=== PATIENT | female | born 1990 | race Caucasian/White ===

== ENCOUNTER 2020-01-11 15:27 | Emergency (ER) | payer OTHER, SELFPAY ==
[2020-01-11] MEDS ORDERED: ONDANSETRON 4 MG/2 ML VIAL ONE (17:44)
[2020-01-11] MEDS ORDERED: FENTANYL CITR 100 MCG/2 ML ONE (17:44)
[2020-01-11 18:05] LABS: Absolute Lymphocytes (CBC) 3.3 K/uL (0.7-4.9); Hematocrit 43.4 % (36.0-45.0); MPV 8.5 fL (7.6-11.3); RBC Red Blood Cell Count 4.56 M/uL (3.86-4.86)
[2020-01-11 18:09] LABS: Urine Blood NEGATIVE (NEG); Urine Glucose NEGATIVE (NEG); Urine Protein NEGATIVE (NEG)
[2020-01-11 18:14] LABS: Urine Amorphous Sediment 2+ /HPF (NONE SEEN); Urine Bacteria LOADED /HPF (<20); Urine Culture Reflex Order NOT NEEDED; Urine RBC <5 /HPF (NONE SEEN)
[2020-01-11 18:20] LABS: Albumin 3.4 g/dL (3.4-5.0); Bilirubin Direct 0.3 mg/dL (0-0.2); Bilirubin Total 1.1 mg/dL (0.2-1.0); Potassium 3.9 mmol/L (3.5-5.1); Protein, Total 8.4 g/dL (6.4-8.2)
--- NOTE | 2020-01-11 19:15 | RAD REPORT ---
EXAM DESCRIPTION: CT - Abdomen Pelvis W Contrast - 01/11/2020 6:41 pm CLINICAL HISTORY: Abdominal pain COMPARISON: 2014 TECHNIQUE: Computed axial tomography of the abdomen pelvis was obtained. 100 cc Isovue-300 was admin istered intravenously. Oral contrast was not requested which limits evaluation of bowel. All CT scans are performed using dose optimization technique as appropriate and may include automated exposure control or mA/KV adjustment according to patient size. FINDINGS: Fatty liver The spleen, adrenals and kidneys unremarkable Cholecystectomy Pancreas is normal size and density. Moderate stranding is present within the fat between the pancreatic tail and descending colon. There is no evidence of diverticulitis. Normal appendix. Small umbilical hernia IMPRESSION: Moderate stranding within the fat between the pancreatic tail and descending colon. This indicates inflammation. It probably is related to pancreatitis. Colonic information is considered so mewhat less likely
[2020-01-11] MEDS ORDERED: NA CHLORIDE 0.9% 1,000 ML ONE (19:36)
--- NOTE | 2020-01-11 20:09 | EDPHYS ---
Physician Documentation [facility] Name: Felicitas Narayan Age: 29 yrs Sex: Female : 1990 Arrival Date: 01/11/2020 Time: 15:32 Bed 5 Private MD: ED Physician Shaka Gary HPI: 01/10 17:27 This 29 yrs old Female presents to ER via Ambulatory with complaints of jmm Abdominal Pain. 17:27 The patient presents with abdominal pain. Onset: The symptoms/episode began/occurred jmm gradually. The symptoms do not radiate. Associated signs and symptoms: Pertinent positives: anorexia, Pertinent negatives: diarrhea, dysuria, fever, palpitations, shortness of breath, vaginal discharge, vomiting, vomiting blood. This is a 29 year old female with a history of anxiety, cva, depression, hypoglycemia, lupus, epilepsy that presents to the ED with complaints of generalized abdominal pain over the past 3 days worsening today. . Historical: - Allergies: 15:45 cranberries; ss 15:45 Morphine; ss 15:45 ORANGES; ss - PMHx: 15:45 Anxiety; CVA; x6; Depression; HYPOGLYCEMIA; Lupus; none since 2011; Seizures; Ulcers; ss Hepatitis; - PSHx: 15:45 Hysterectomy; Cholecystectomy; ss - Immunization history:: Adult Immunizations up to date. - Social history:: Smoking status: Patient reports the use of cigarette tobacco products, 1 pp week. ROS: 17:27 Constitutional: Negative for fever, chills, and weight loss, Cardiovascular: Negative jmm for chest pain, palpitations, and edema, Respiratory: Negative for shortness of breath, cough, wheezing, and pleuritic chest pain. 17:27 Abdomen/GI: Positive for abdominal pain. 17:27 All other systems are negative. Exam: 17:27 Constitutional: This is a well developed, well nourished patient who is awake, alert, jmm and in no acute distress. Head/Face: atraumatic. Eyes: EOMI, no conjunctival erythema appreciated ENT: Moist Mucus Membranes Neck: Trachea midline, Supple Chest/axilla: Normal chest wall appearance and motion. Cardiovascular: Regular rate and rhythm. No edema appreciated Respiratory: Normal respirations, no respiratory distress appreciated 17:27 Back: Normal ROM Skin: General appearance color normal MS/ Extremity: Moves all extremities, no obvious deformities appreciated, no edema noted to the lower extremities Neuro: Awake and alert, normal gait Psych: Behavior is normal, Mood is normal, Patient is cooperative and pleasant 17:27 Abdomen/GI: Inspection: obese Palpation: soft, moderate abdominal tenderness, in the right lower quadrant. Vital Signs: 15:42 BP 146 / 106; Pulse 105; Resp 16; Temp 98.5(TE); Pulse Ox 99% on R/A; Weight 93.44 kg; ss Height 5 ft. 0 in. (152.40 cm); Pain 6/10; 20:15 BP 138 / 78; Pulse 80; Resp 18; Pulse Ox 98% ; ea 15:42 Body Mass Index 40.23 (93.44 kg, 152.40 cm) ss MDM: 17:17 Patient medically screened. [facility] 20:05 Data reviewed: vital signs, nurses notes. Counseling: I had a detailed discussion with seymour the patient and/or guardian regarding: the historical points, exam findings, and any diagnostic results supporting the discharge/admit diagnosis, lab results, radiology results, the need for outpatient follow up, to return to the emergency department if symptoms worsen or persist or if there are any questions or concerns that arise at home. ED course: Patient is alert and non toxic in appearance in the ED. Patient is advised to follow up with pcp and otherwise advised to follow up with GI for further evaluation. Patient understood and agrees with the plan of care. . 01/10 15:47 Order name: Urine Culture [facility] 01/10 15:47 Order name: Urine Microscopic Only; Complete Time: 18:19 [facility] 01/10 17:27 Order name: Basic Metabolic Panel; Complete Time: 18:25 [facility] 01/10 17:27 Order name: CBC with Diff; Complete Time: 18:09 [facility] 01/10 17:27 Order name: Hepatic Function; Complete Time: 18:25 [facility] 01/10 17:27 Order name: Lipase; Complete Time: 18:25 [facility] 01/10 15:47 Order name: Urine Test (obtain specimen); Complete Time: 18:23 [facility] 01/10 15:47 Order name: Urine Dipstick-Ancillary (obtain specimen); Complete Time: 18:23 [facility] 01/10 17:27 Order name: IV Saline Lock; Complete Time: 18:23 [facility] 01/10 17:27 Order name: CT Abd/Pelvis - IV Contrast Only; Complete Time: 19:19 [facility] 01/10 18:05 Order name: Urine Dipstick--Ancillary (enter results); Complete Time: 18:14 eb 01/10 17:27 Order name: Labs collected and sent; Complete Time: 18:02 [facility] Administered Medications: 18:23 Drug: fentaNYL (PF) 50 mcg Route: IVP; Site: left antecubital; hb 18:44 Follow up: Response: No adverse reaction hb 18:23 Drug: Zofran (Ondansetron) 4 mg Route: IVP; Site: left antecubital; hb 18:43 Follow up: Response: No adverse reaction hb 19:25 Drug: NS 0.9% 1000 ml Route: IV; Rate: 1 bolus; Site: right antecubital; ea 20:30 Follow up: Response: No adverse reaction; IV Status: Completed infusion; IV Intake: ea 1000ml Disposition: 01/11/20 20:07 Discharged to Home. Impression: Acute pancreatitis. - Condition is Stable. - Discharge Instructions: Clear Liquid Diet, Adult, Acute Pancreatitis. - Prescriptions for Ultracet 37.5- 325 mg Oral Tablet - take 1 tablet by ORAL route every 6 hours - for up to 5 days; do not exceed 8 tablets per day.; 20 tablet. Zofran ODT 4 mg Oral tablet,disintegrating - place 1 tablet by TRANSLINGUAL route every 4-6 hours; 20 tablet. Cipro 500 mg Oral Tablet - take 1 tablet by ORAL route every 12 hours for 10 days; 20 tablet. - Medication Reconciliation Form, Thank You Letter, Antibiotic Education, Prescription Opioid Use form. - Follow up: Denise Bender MD; When: 2 - 3 days; Reason: Recheck today's complaints, Continuance of care, Re-evaluation by your physician. Addendum: 01/13/2020 18:54 Co-signature as Attending Physician, Shaka Gary MD I agree with the assessment and k dr plan of care. Signatures: Dispatcher [employer] EDShaka Gonsalez MD MD kdr Waters, Shelly, LEGAL ASSOCIATE-C LEGAL ASSOCIATE-Csnw Elio Rosales PA PA Marbella Garnett RN RN Lacey Hyde RN Betty Suárez RN GAIL hope Corrections: (The following items were deleted from the chart) 01/10 20:31 20:07 01/11/2020 20:07 Discharged to Home. Impression: Acute pancreatitis. Condition is ea Stable. Forms are Medication Reconciliation Form, Thank You Letter, Antibiotic Education, Prescription Opioid Use. Follow up: Denise Bender; When: 2 - 3 days; Reason: Recheck today's complaints, Continuance of care, Re-evaluation by your physician. kimberlyn
--- NOTE | 2020-01-11 20:09 | ER ---
Nurse's Notes [facility] Name: Felicitas Narayan Age: 29 yrs Sex: Female : 1990 Arrival Date: 01/11/2020 Time: 15:32 Bed 5 Private MD: Diagnosis: Acute pancreatitis Presentation: 01/10 15:42 Chief complaint: Patient states: abd pain that feels like, "hunger pain", is constant. ss Pain has been ongoing for 4.5 days. Pain is worse when deep breathing and coughing. Coronavirus screen: Client denies travel out of the [place] in the last 14 days. Ebola Screen: Patient denies exposure to infectious person. Patient denies travel to an Ebola-affected area in the 21 days before illness onset. Initial Sepsis Screen: Does the patient meet any 2 criteria? No. Patient's initial sepsis screen is negative. Does the patient have a suspected source of infection? No. Patient's initial sepsis screen is negative. Risk Assessment: Do you want to hurt yourself or someone else? Patient reports no desire to harm self or others. Note Denies N/V/D. Onset of symptoms was January 07, 2020. 15:42 Method Of Arrival: Ambulatory ss 15:42 Acuity: ELSIE 3 ss Historical: - Allergies: 15:45 cranberries; ss 15:45 Morphine; ss 15:45 ORANGES; ss - PMHx: 15:45 Anxiety; CVA; x6; Depression; HYPOGLYCEMIA; Lupus; none since 2011; Seizures; Ulcers; ss Hepatitis; - PSHx: 15:45 Hysterectomy; Cholecystectomy; ss - Immunization history:: Adult Immunizations up to date. - Social history:: Smoking status: Patient reports the use of cigarette tobacco products, 1 pp week. Screenin:03 Abuse screen: Denies threats or abuse. Denies injuries from another. Nutritional hb screening: No deficits noted. Tuberculosis screening: No symptoms or risk factors identified. Fall Risk None identified. Assessment: 18:02 General: Appears in no apparent distress. Behavior is calm, cooperative. Pain: Pain hb currently is 7 out of 10 on a pain scale. Neuro: Level of Consciousness is awake, alert, obeys commands, Oriented to person, place, time, situation. Cardiovascular: Capillary refill < 3 seconds Patient's skin is warm and dry. Respiratory: Respiratory effort is even, unlabored, Respiratory pattern is regular, symmetrical. GI: Reports lower abdominal pain, upper abdominal pain. : No signs and/or symptoms were reported regarding the genitourinary system. EENT: No signs and/or symptoms were reported regarding the EENT system. Derm: Skin is pink, warm \\T\\ dry. Musculoskeletal: No signs and/or symptoms reported regarding the musculoskeletal system. 18:07 Reassessment: Charge Nurse Marbella RN at bedside to establish PIV access. hb 19:01 Reassessment: Patient appears in no apparent distress at this time. Patient and/or hb family updated on plan of care and expected duration. Pain level reassessed. Patient is alert, oriented x 3, equal unlabored respirations, skin warm/dry/pink. 20:15 Reassessment: Patient and/or family updated on plan of care and expected duration. Pain ea level reassessed. Patient is alert, oriented x 3, equal unlabored respirations, skin warm/dry/pink. Discharge instruction given to patient, verbalized the understanding of instruction. Awaiting for fluids to complete. 20:30 Reassessment: Patient and/or family updated on plan of care and expected duration. Pain ea level reassessed. Patient is alert, oriented x 3, equal unlabored respirations, skin warm/dry/pink. IV fluids complete. Pt left ED ambulatory tolerating well. Vital Signs: 15:42 BP 146 / 106; Pulse 105; Resp 16; Temp 98.5(TE); Pulse Ox 99% on R/A; Weight 93.44 kg; ss Height 5 ft. 0 in. (152.40 cm); Pain 6/10; 20:15 BP 138 / 78; Pulse 80; Resp 18; Pulse Ox 98% ; ea 15:42 Body Mass Index 40.23 (93.44 kg, 152.40 cm) ED Course: 15:32 Patient arrived in ED. bg2 15:44 Triage completed. 15:45 Arm band placed on right wrist. 17:04 Elio Rosales PA is PHCP. [facility] 17:04 Shaka Gary MD is Attending Physician. [facility] 17:48 Missed attempt(s): 20 gauge in right antecubital area. Bleeding controlled, band aid hb applied, catheter tip intact. 17:57 Missed attempt(s): 22 gauge in left antecubital area. Bleeding controlled, band aid hb applied, catheter tip intact. 18:02 Lacey Hyde, RN is Primary Nurse. hb 18:03 Patient has correct armband on for positive identification. Bed in low position. Call hb light in reach. 18:30 Inserted saline lock: 20 gauge in right antecubital area, using aseptic technique. 3 18:41 CT Abd/Pelvis - IV Contrast Only In Process Unspecified. EDMS 20:07 Denise Bender MD is Referral Physician. m 20:18 No provider procedures requiring assistance completed. ea 20:29 IV discontinued, intact, bleeding controlled, No redness/swelling at site. Pressure ea dressing applied. Administered Medications: 18:23 Drug: fentaNYL (PF) 50 mcg Route: IVP; Site: left antecubital; hb 18:44 Follow up: Response: No adverse reaction hb 18:23 Drug: Zofran (Ondansetron) 4 mg Route: IVP; Site: left antecubital; hb 18:43 Follow up: Response: No adverse reaction hb 19:25 Drug: NS 0.9% 1000 ml Route: IV; Rate: 1 bolus; Site: right antecubital; ea 20:30 Follow up: Response: No adverse reaction; IV Status: Completed infusion; IV Intake: ea 1000ml Intake: 20:30 IV: 1000ml; Total: 1000ml. ea Outcome: 20:07 Discharge ordered by . m 20:18 Condition: stable ea 20:18 Discharge instructions given to patient, Instructed on discharge instructions, follow up and referral plans. medication usage, Demonstrated understanding of instructions, follow-up care, medications, Prescriptions given X 3. 20:29 Discharged to home ambulatory. ea 20:31 Patient left the ED. ea Signatures: Dispatcher [employer] EDMS Elio Rosales PA PA jmm Smirch, Shelby, RN RN ss Glass, Brittany [facility] Lacey Hyde, GAIL REYNOLDS Cecy Forman 3 Betty Khan RN RN ea
[2020-01-11 21:01] VITALS: TEMP 98.5
[2020-01-11 21:03] VITALS: BP 138/78; O2SAT 98
== END 2020-01-11 20:31 | disposition home or self-care (01) ==
LOC: ER 15:27
DX: K85.90 Acute pancreatitis without necrosis or infection, unspecified (principal); F17.210 Nicotine dependence, cigarettes, uncomplicated; Z86.73 Personal history of transient ischemic attack (TIA), and cerebral infarction without residual deficits; Z88.5 Allergy status to narcotic agent; Z91.018 Allergy to other foods
CPT/HCPCS: 36415; 74177; 80048; 80076; 81003; 81015; 83690; 85025; 87086; 87088; 96361; 96374; 96375; 99284; J2405; J3010; J7030; Q9967

== ENCOUNTER 2020-07-14 11:48 | Emergency (ER) | payer SELFPAY ==
[2020-07-14] MEDS ORDERED: HYDROCODONE/APAP 5/325 MG TAB ONE (14:42)
--- NOTE | 2020-07-14 14:59 | RAD REPORT ---
EXAM DESCRIPTION: RAD - Tib Fib Right - 07/14/2020 2:50 pm CLINICAL HISTORY: fall FINDINGS: Right knee and right tibia/fibula - multiple projections are submitted No fracture or dislocation is seen. No joint effusion is evident.
--- NOTE | 2020-07-14 15:58 | ER ---
Nurse's Notes [facility] Name: Felicitas Narayan Age: 30 yrs Sex: Female : 1990 Arrival Date: 07/14/2020 Time: 11:49 Bed 27 Private MD: Diagnosis: Internal derangement of knee Presentation: 07/14 12:16 Chief complaint: Patient states: "I fell yesterday, and I heard my right knee pop jd3 causing me to throw up immediately after.". Coronavirus screen: At this time, the client does not indicate any symptoms associated with coronavirus-19. Ebola Screen: Patient negative for fever greater than or equal to 101.5 degrees Fahrenheit, and additional compatible Ebola Virus Disease symptoms. Initial Sepsis Screen: Does the patient meet any 2 criteria? No. Patient's initial sepsis screen is negative. Does the patient have a suspected source of infection? No. Patient's initial sepsis screen is negative. Risk Assessment: Do you want to hurt yourself or someone else? Patient reports no desire to harm self or others. Onset of symptoms was July 13, 2020. 12:16 Method Of Arrival: Ambulatory jd3 12:16 Acuity: ELSIE 3 jd3 Triage Assessment: 16:01 General: Behavior is calm. 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 - Social history:: Smoking status: Patient reports the use of cigarette tobacco products, denies chronic smoking, but will smoke occasionally. Screenin:30 Abuse screen: Denies threats or abuse. Denies injuries from another. Nutritional zb screening: No deficits noted. Tuberculosis screening: No symptoms or risk factors identified. Fall Risk Fall in past 12 months (25 points). No secondary diagnosis (0 pts). No IV (0 pts). Ambulatory Aid- None/Bed Rest/Nurse Assist (0 pts). Gait- Normal/Bed Rest/Wheelchair (0 pts) Mental Status- Oriented to own ability (0 pts). Total Roca Fall Scale indicates Low Risk Score (25-44 pts). Fall prevention measures have been instituted. Side Rails Up X 2 Placed close to Nursing Station Frequent Obs/Assesments occuring As available Patient and Family Educated on Fall Prevention Program and strategies. Assessment: 14:29 General: Appears uncomfortable. Pain: Complains of pain in posterior aspect of right zb knee and right knee Pain radiates to right quadriceps Pain currently is 6 out of 10 on a pain scale. Quality of pain is described as aching, shooting, throbbing, Aggravated by increased activity, repositioning, weight bearing. Neuro: No deficits noted. Level of Consciousness is awake, alert, obeys commands, Oriented to person, place, time, situation. Cardiovascular: No deficits noted. Respiratory: No deficits noted. GI: No deficits noted. Derm: Skin is intact, is healthy with good turgor, Skin is dry, Skin is normal. Musculoskeletal: Range of motion: limited in right knee Swelling present in right knee Tenderness present in right knee. Injury Description: Abrasion sustained to right knee is scabbed. 15:16 Reassessment: Patient appears in no apparent distress at this time. Patient and/or zb family updated on plan of care and expected duration. Pain level reassessed. Patient is alert, oriented x 3, equal unlabored respirations, skin warm/dry/pink. pt states" medication is starting to kick in". Vital Signs: 12:18 BP 137 / 97; Pulse 96; Resp 17 S; Temp 96.9(TE); Pulse Ox 100% on R/A; Weight 107.05 kg jd3 (R); Height 5 ft. 0 in. (152.40 cm) (R); Pain 6/10; 15:14 BP 114 / 84; Pulse 79; Resp 16; Pulse Ox 93% on R/A; zb 16:01 BP 115 / 82; Pulse 80; Resp 16; Pulse Ox 96% on R/A; zb 12:18 Body Mass Index 46.09 (107.05 kg, 152.40 cm) jd3 ED Course: 11:49 Patient arrived in ED. am2 12:17 Triage completed. jd3 12:18 Arm band placed on. jd3 13:34 Elio Rosales PA is PHCP. [facility] 13:34 Prosper Contreras MD is Attending Physician. [facility] 14:29 Teresa Saldaña, RN is Primary Nurse. zb 14:30 Patient has correct armband on for positive identification. Call light in reach. Side zb rails up X 1. Pulse ox on. NIBP on. Door closed. Noise minimized. 14:49 Knee Right 3 View XRAY In Process Unspecified. EDMS 14:49 Tib Fib Right XRAY In Process Unspecified. EDMS 15:55 Papo Segura MD is Referral Physician. jmm 16:01 No provider procedures requiring assistance completed. Patient did not have IV access zb during this emergency room visit. Administered Medications: 14:22 Drug: Bethesda (HYDROcodone-acetaminophen) 5 mg-325 mg 1 tabs {Note: RASS 0.} Route: PO; zb 15:48 Follow up: Response: No adverse reaction; Pain is decreased; RASS: Alert and Calm (0) zb Outcome: 15:57 Discharge ordered by . [facility] 16:01 Discharged to home via wheelchair. zb 16:01 Condition: stable 16:01 Discharge instructions given to patient, Instructed on discharge instructions, follow up and referral plans. medication usage, Demonstrated understanding of instructions, follow-up care, medications. 16:09 Patient left the ED. zb Signatures: Dispatcher [employer] EDID Elio Rosales PA PA [facility] Linsey Gallegos am2 Mayur Mendoza RN RN jd3 Teresa Saldaña, GAIL RN zb Corrections: (The following items were deleted from the chart) 14:59 14:22 Bethesda (HYDROcodone-acetaminophen) 5 mg-325 mg 1 tabs PO zb zb 16:02 16:01 Discharge instructions given to patient, Instructed on discharge instructions, zb follow up and referral plans. Demonstrated understanding of instructions, follow-up care, zb
--- NOTE | 2020-07-14 15:58 | EDPHYS ---
Physician Documentation [facility] Name: Felicitas Narayan Age: 30 yrs Sex: Female : 1990 Arrival Date: 07/14/2020 Time: 11:49 Bed 27 Private MD: ED Physician Prosper Contreras HPI: 07/14 13:51 This 30 yrs old Female presents to ER via Ambulatory with complaints of Fall jmm Injury, Knee Pain. 13:51 Details of fall: The patient fell from an upright position. Onset: The symptoms/episode jmm began/occurred acutely, just prior to arrival. Associated injuries: The patient sustained right knee. It is unknown whether or not the patient has had similar symptoms in the past. This is a 30 year old female with a history of cva, depression, hepatitis, lupus that presents to the ED with complaints of right knee pain after rolling her left ankle while walking. Patient landed directl;y on the right knee and now has posterior pain and proximal tibial pain. . 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 - Social history:: Smoking status: Patient reports the use of cigarette tobacco products, denies chronic smoking, but will smoke occasionally. ROS: 13:51 Constitutional: Negative for fever, chills, and weight loss, Cardiovascular: Negative jmm for chest pain, palpitations, and edema, Respiratory: Negative for shortness of breath, cough, wheezing, and pleuritic chest pain. 13:51 MS/extremity: Positive for injury or acute deformity, pain. 13:51 All other systems are negative. Exam: 13:51 Constitutional: This is a well developed, well nourished patient who is awake, alert, jmm and in no acute distress. Head/Face: atraumatic. Eyes: EOMI, no conjunctival erythema appreciated ENT: Moist Mucus Membranes Neck: Trachea midline, Supple Chest/axilla: Normal chest wall appearance and motion. Cardiovascular: Regular rate and rhythm. No edema appreciated Respiratory: Normal respirations, no respiratory distress appreciated Abdomen/GI: Non distended, soft Back: Normal ROM 13:51 Musculoskeletal/extremity: FROM noted to the right knee, compartments are soft, full dorsalis pulse, NVI. 13:51 Skin: abrasion noted to the right anterior knee. 13:51 Neuro: Orientation: is normal, Mentation: is normal, Memory: is normal. 13:51 Psych: Behavior/mood is pleasant, cooperative. Vital Signs: 12:18 BP 137 / 97; Pulse 96; Resp 17 S; Temp 96.9(TE); Pulse Ox 100% on R/A; Weight 107.05 kg jd3 (R); Height 5 ft. 0 in. (152.40 cm) (R); Pain 6/10; 15:14 BP 114 / 84; Pulse 79; Resp 16; Pulse Ox 93% on R/A; zb 16:01 BP 115 / 82; Pulse 80; Resp 16; Pulse Ox 96% on R/A; zb 12:18 Body Mass Index 46.09 (107.05 kg, 152.40 cm) jd3 MDM: 13:49 Patient medically screened. [facility] 15:54 Data reviewed: vital signs, nurses notes. Counseling: I had a detailed discussion with [facility] the patient and/or guardian regarding: the historical points, exam findings, and any diagnostic results supporting the discharge/admit diagnosis, radiology results, the need for outpatient follow up, to return to the emergency department if symptoms worsen or persist or if there are any questions or concerns that arise at home. 07/14 13:49 Order name: Knee Right 3 View XRAY [facility] 07/14 13:49 Order name: Tib Fib Right XRAY; Complete Time: 15:00 [facility] 07/14 15:30 Order name: Knee Immobilizer; Complete Time: 16:00 [facility] Administered Medications: 14:22 Drug: [place] (HYDROcodone-acetaminophen) 5 mg-325 mg 1 tabs {Note: RASS 0.} Route: PO; zb 15:48 Follow up: Response: No adverse reaction; Pain is decreased; RASS: Alert and Calm (0) zb Disposition: 17:16 Co-signature as Attending Physician, rPosper Contreras MD. rn Disposition: 07/14/20 15:57 Discharged to Home. Impression: Internal derangement of knee. - Condition is Stable. - Discharge Instructions: Knee Pain. - Prescriptions for Ibuprofen 800 mg Oral Tablet - take 1 tablet by ORAL route every 8 hours As needed take with food; 30 tablet. Ultracet 37.5- 325 mg Oral Tablet - take 1 tablet by ORAL route every 6 hours - for up to 5 days; do not exceed 8 tablets per day.; 20 tablet. - Medication Reconciliation Form, Thank You Letter, Antibiotic Education, Prescription Opioid Use, Work release form form. - Follow up: Papo Segura MD; When: 2 - 3 days; Reason: Recheck today's complaints, Continuance of care, Re-evaluation by your physician. Signatures: Dispatcher [employer] EDMS Elio Rosales PA PA jmm Nieto, Roman, MD MD rn Davies, Jonathon, RN RN Teresa Garcia RN RN zb Corrections: (The following items were deleted from the chart) 16:09 15:57 07/14/2020 15:57 Discharged to Home. Impression: Internal derangement of knee. zb Condition is Stable. Forms are Medication Reconciliation Form, Thank You Letter, Antibiotic Education, Prescription Opioid Use. Follow up: Dr. Papo Segura; When: 2 - 3 days; Reason: Recheck today's complaints, Continuance of care, Re-evaluation by your physician. [email or web address]
[2020-07-14 16:51] VITALS: TEMP 96.9
[2020-07-14 17:01] VITALS: BP 115/82; O2SAT 96
--- NOTE | 2020-07-16 09:36 | RAD REPORT ---
EXAM DESCRIPTION: RAD - Knee Right 3 View - 07/14/2020 2:49 pm CLINICAL HISTORY: Fall FINDINGS: Right knee and right tibia/fibula - multiple projections are submitted No fracture or dislocation is seen. No joint effusion is evident.
== END 2020-07-14 16:09 | disposition home or self-care (01) ==
LOC: ER 11:48
DX: M23.91 Unspecified internal derangement of right knee (principal); W19.XXXA Unspecified fall, initial encounter; Y93.01 Activity, walking, marching and hiking; F17.210 Nicotine dependence, cigarettes, uncomplicated; Z88.5 Allergy status to narcotic agent; Z91.018 Allergy to other foods; Z86.73 Personal history of transient ischemic attack (TIA), and cerebral infarction without residual deficits
CPT/HCPCS: 99283

== ENCOUNTER 2021-01-24 19:46 | Emergency (ER) | payer SELFPAY ==
--- OUTSIDE RECORDS SUMMARY | 2021-01-24 19:48 | XMS REPORT | Continuity of Care Document ---
:1990 Author Organization [facility] t Address [address] [place] [address] Care Team Providers Name Role Phone Unavailable Unavailable Unavailable Problems This patient has no known problems. Allergies, Adverse Reactions, Alerts This patient has no known allergies or adverse reactions. Medications This patient has no known medications. Procedures This patient has no known procedures. Results This patient has no known results.
[2021-01-24] MEDS ORDERED: DIPHENHYDRAMINE 25 MG TAB/CAP ONE (22:07)
[2021-01-24] MEDS ORDERED: FAMOTIDINE 20 MG TAB ONE (22:07)
[2021-01-24] MEDS ORDERED: predniSONE 20 MG TAB ONE (22:08)
--- NOTE | 2021-01-24 22:45 | ER ---
Nurse's Notes [facility] Name: Felicitas Narayan Age: 30 yrs Sex: Female : 1990 Arrival Date: 01/24/2021 Time: 19:47 Bed 10 Private MD: Diagnosis: Urticaria, unspecified Presentation: 01/24 20:01 Chief complaint: Patient states: Rash started last night, feeling is burning sensation. vg1 States rash is all over body. Denies shortness of breath, difficulty breathing or throat itchiness. Coronavirus screen: Vaccine status: Patient reports being unvaccinated. Client denies travel out of the [place] in the last 14 days. Ebola Screen: Patient negative for fever greater than or equal to 101.5 degrees Fahrenheit, and additional compatible Ebola Virus Disease symptoms. Onset: The symptoms/episode began/occurred yesterday. Anaphylaxis evaluation, no signs or symptoms of anaphylaxis were noted. Initial Sepsis Screen: Does the patient meet any 2 criteria? No. Patient's initial sepsis screen is negative. Does the patient have a suspected source of infection? No. Patient's initial sepsis screen is negative. Risk Assessment: Do you want to hurt yourself or someone else? Patient reports no desire to harm self or others. Onset of symptoms was January 23, 2021. 20:01 Method Of Arrival: Ambulatory vg1 20:01 Acuity: ELSIE 3 vg1 Triage Assessment: 20:05 General: Appears in no apparent distress. uncomfortable, Behavior is calm, cooperative. vg1 Pain: Complains of pain in generalized body Pain currently is 6 out of 10 on a pain scale. Derm: Rash noted that is itchy, red, raised, Reports burning, itching. 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 - Social history:: Smoking status: Reported history of juuling and/or vaping. Screenin:36 Abuse screen: Denies threats or abuse. Denies injuries from another. Nutritional aj1 screening: No deficits noted. Tuberculosis screening: No symptoms or risk factors identified. 22:57 Fall Risk None identified. bb Assessment: 21:36 General: Appears in no apparent distress. uncomfortable, Behavior is calm, cooperative, aj1 appropriate for age. Pain: Denies pain. Neuro: Level of Consciousness is awake, alert, obeys commands, Oriented to person, place, time, situation. Cardiovascular: Heart tones S1 S2 present Patient's skin is warm and dry. Respiratory: Airway is patent Respiratory effort is even, unlabored, Respiratory pattern is regular, symmetrical, Breath sounds are clear bilaterally. Denies cough, shortness of breath. GI: No signs and/or symptoms were reported involving the gastrointestinal system. : No signs and/or symptoms were reported regarding the genitourinary system. EENT: No signs and/or symptoms were reported regarding the EENT system. Derm: Rash noted that is raised, urticaria, on right arm and left arm. Musculoskeletal: No signs and/or symptoms reported regarding the musculoskeletal system. Circulation, motion, and sensation intact. 22:55 Reassessment: Patient is alert, oriented x 3, equal unlabored respirations, skin bb warm/dry/pink. pt verbalized understanding of and agrees to plan of care discharge instructions given pt ambulated with steady gait to exit. Vital Signs: 20:01 BP 134 / 95; Pulse 109; Resp 18; Temp 97.9; Pulse Ox 98% ; Weight 90.72 kg; Height 5 vg1 ft. 0 in. (152.40 cm); Pain 7/10; 21:37 BP 128 / 108; Pulse 107; Resp 20; Pulse Ox 100% on R/A; aj1 22:55 BP 110 / 73; Pulse 94; Resp 16 S; Pulse Ox 100% on R/A; bb 20:01 Body Mass Index 39.06 (90.72 kg, 152.40 cm) vg1 ED Course: 19:47 Patient arrived in ED. bp1 20:05 Triage completed. vg1 20:05 Arm band placed on Patient placed in waiting room. vg1 21:36 Lexi Banda RN is Primary Nurse. aj1 21:36 Patient has correct armband on for positive identification. aj1 21:36 No provider procedures requiring assistance completed. aj1 21:52 Nitish Figueroa MD is Attending Physician. 7 22:43 Dimitris Covarrubias MD is Referral Physician. 7 22:57 Patient did not have IV access during this emergency room visit. bb Administered Medications: 22:13 Drug: predniSONE 60 mg Route: PO; bb 22:56 Follow up: Response: No adverse reaction bb 22:13 Drug: Benadryl (diphenhydrAMINE) 50 mg Route: PO; bb 22:56 Follow up: Response: No adverse reaction bb 22:13 Drug: Pepcid (famotidine) 20 mg Route: PO; bb 22:56 Follow up: Response: No adverse reaction bb Outcome: 22:44 Discharge ordered by . 7 22:56 Discharged to home ambulatory. bb 22:56 Condition: stable 22:56 Discharge instructions given to patient, Instructed on discharge instructions, follow up and referral plans. medication usage, Demonstrated understanding of instructions, follow-up care, medications, Prescriptions given X 3. 22:57 Patient left the ED. bb Signatures: Lexi Banda RN RN aj1 Maya Mcintosh RN RN Chelsy Earl, RN RN vg1 Farzaneh Beach Maurice, MD MD [facility] Corrections: (The following items were deleted from the chart) 20:07 20:05 Home Meds: Hydrochlorothiazide Oral; vg1 vg1 20:07 20:05 Home Meds: Lexapro Oral; vg1 vg1
--- NOTE | 2021-01-24 22:45 | EDPHYS ---
Physician Documentation [facility] Name: Felicitas Narayan Age: 30 yrs Sex: Female : 1990 Arrival Date: 01/24/2021 Time: 19:47 Bed 10 Private MD: ED Physician Nitish Figueroa HPI: 01/24 22:05 This 30 yrs old Female presents to ER via Ambulatory with complaints of Allergic mh7 Reaction. 22:05 The patient presents with itching, rash, that is diffuse. Onset: The symptoms/episode mh7 began/occurred yesterday. Associated signs and symptoms: Pertinent positives: hives, rash, Pertinent negatives: abdominal pain, Altered mental status chest pain, dysphagia, fever, headache, Light headed nausea, shortness of breath, swelling, Syncope vomiting. 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 At home the patient or guardian has treated the symptoms with Benadryl, Took yesterday with improvement has not taken any subsequent doses. Severity of symptoms: At their worst the symptoms were mild today, in the emergency department the symptoms are unchanged. 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 mh7 She denies any fever, chest pain, shortness of breath, nausea, vomiting, throat swelling, tongue swelling.. 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 - Social history:: Smoking status: Reported history of juuling and/or vaping. ROS: 22:05 Constitutional: Negative for fever, chills, and weight loss, Eyes: Negative for injury, mh7 pain, redness, and discharge, ENT: Negative for injury, pain, and discharge, Neck: Negative for injury, pain, and swelling, Cardiovascular: Negative for chest pain, palpitations, and edema, Respiratory: Negative for shortness of breath, cough, wheezing, and pleuritic chest pain, Abdomen/GI: Negative for abdominal pain, nausea, vomiting, diarrhea, and constipation, Back: Negative for injury and pain, : Negative for injury, bleeding, discharge, and swelling, MS/Extremity: Negative for injury and deformity, Neuro: Negative for headache, weakness, numbness, tingling, and seizure, Psych: Negative for depression, anxiety, suicide ideation, homicidal ideation, and hallucinations, Endocrine: Negative for neck swelling, polydipsia, polyuria, polyphagia, and marked weight changes, Hematologic/Lymphatic: Negative for swollen nodes, abnormal bleeding, and unusual bruising. Exam: 22:05 Constitutional: This is a well developed, well nourished patient who is awake, alert, mh7 and in no acute distress. Head/Face: Normocephalic, atraumatic. Eyes: Pupils equal round and reactive to light, extra-ocular motions intact. Lids and lashes normal. Conjunctiva and sclera are non-icteric and not injected. Cornea within normal limits. Periorbital areas with no swelling, redness, or edema. ENT: Nares patent. No nasal discharge, no septal abnormalities noted. Tympanic membranes are normal and external auditory canals are clear. Oropharynx with no redness, swelling, or masses, exudates, or evidence of obstruction, uvula midline. Mucous membranes moist. Neck: Trachea midline, no thyromegaly or masses palpated, and no cervical lymphadenopathy. Supple, full range of motion without nuchal rigidity, or vertebral point tenderness. No Meningismus. Chest/axilla: Normal chest wall appearance and motion. Nontender with no deformity. No lesions are appreciated. Cardiovascular: Regular rate and rhythm with a normal S1 and S2. No gallops, murmurs, or rubs. Normal PMI, no JVD. No pulse deficits. Respiratory: Lungs have equal breath sounds bilaterally, clear to auscultation and percussion. No rales, rhonchi or wheezes noted. No increased work of breathing, no retractions or nasal flaring. Abdomen/GI: Soft, non-tender, with normal bowel sounds. No distension or tympany. No guarding or rebound. No evidence of tenderness throughout. Back: No spinal tenderness. No costovertebral tenderness. Full range of motion. 22:05 Neuro: Awake and alert, GCS 15, oriented to person, place, time, and situation. Cranial nerves II-XII grossly intact. Motor strength 5/5 in all extremities. Sensory grossly intact. Cerebellar exam normal. Normal gait. Psych: Awake, alert, with orientation to person, place and time. Behavior, mood, and affect are within normal limits. 22:05 Skin: rash a mild rash is noted, rash can be described as urticarial, urticaria, and is diffusely located. Vital Signs: 20:01 BP 134 / 95; Pulse 109; Resp 18; Temp 97.9; Pulse Ox 98% ; Weight 90.72 kg; Height 5 vg1 ft. 0 in. (152.40 cm); Pain 7/10; 21:37 BP 128 / 108; Pulse 107; Resp 20; Pulse Ox 100% on R/A; aj1 22:55 BP 110 / 73; Pulse 94; Resp 16 S; Pulse Ox 100% on R/A; bb 20:01 Body Mass Index 39.06 (90.72 kg, 152.40 cm) vg1 MDM: 22:43 Differential diagnosis: anaphylaxis, angioedema, non IgE mediated drug reaction 7 urticaria. Data reviewed: vital signs, nurses notes. Data interpreted: Pulse oximetry: on room air is 100 %. Interpretation: normal. 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 Response to treatment: the patient's symptoms have markedly improved after treatment. 22:44 Patient medically screened. [facility] Administered Medications: 22:13 Drug: predniSONE 60 mg Route: PO; bb 22:56 Follow up: Response: No adverse reaction bb 22:13 Drug: Benadryl (diphenhydrAMINE) 50 mg Route: PO; bb 22:56 Follow up: Response: No adverse reaction bb 22:13 Drug: Pepcid (famotidine) 20 mg Route: PO; bb 22:56 Follow up: Response: No adverse reaction bb Disposition Summary: 01/24/21 22:44 Discharge Ordered Location: Home [facility] Problem: new [facility] Symptoms: have improved [facility] Condition: Stable [facility] Diagnosis - Urticaria, unspecified [facility] Followup: [facility] - With: Private Physician - When: 1 - 2 days - Reason: Worsening of condition, Recheck today's complaints, Continuance of care, Re-evaluation by your physician Followup: [facility] - With: Dimitris Covarrubias MD - When: 2 - 3 days - Reason: Worsening of condition, Recheck today's complaints Discharge Instructions: - Discharge Summary Sheet [facility] - Rash, Adult, [id number] [facility] - Hives, [id number] [facility] - Allergies, Adult, [id number] [facility] Forms: - Medication Reconciliation Form [facility] - Thank You Letter [facility] - Antibiotic Education [facility] - Prescription Opioid Use [facility] Prescriptions: - Benadryl 25 mg Oral Capsule - take 1 capsule by ORAL route every 6 hours As needed; 30 tablet; Refills: 0, [facility] Product Selection Permitted - Pepcid 20 mg Oral Tablet - take 1 tablet by ORAL route every 12 hours for 5 days; 10 tablet; Refills: 0, [facility] Product Selection Permitted - Prednisone 20 mg Oral Tablet - take 2 tablets by ORAL route once daily for 5 days; 10 tablet; Refills: 0, [facility] Product Selection Permitted Signatures: Maya Mcintosh RN RN bb Chelsy Warner RN RN vg1 Nitish Figueroa MD MD [facility] Corrections: (The following items were deleted from the chart) 20:07 20:05 Home Meds: Hydrochlorothiazide Oral; vg1 vg1 20:07 20:05 Home Meds: Lexapro Oral; vg1 vg1
[2021-01-24 23:08] VITALS: TEMP 97.9
[2021-01-24 23:14] VITALS: O2SAT 100
[2021-01-24 23:19] VITALS: BP 110/73
== END 2021-01-24 22:57 | disposition home or self-care (01) ==
LOC: ER 19:46
DX: L50.9 Urticaria, unspecified (principal); Z88.5 Allergy status to narcotic agent; Z91.018 Allergy to other foods
CPT/HCPCS: 99283; J7512

== ENCOUNTER 2021-11-17 04:04 | Emergency (ER) | payer SELFPAY ==
--- OUTSIDE RECORDS SUMMARY | 2021-11-17 04:07 | XMS REPORT | Continuity of Care Document ---
:1990 Author Organization [facility] t Address [address] [place] [address] Care Team Providers Name Role Phone Unavailable Unavailable Unavailable Problems This patient has no known problems. Allergies, Adverse Reactions, Alerts This patient has no known allergies or adverse reactions. Medications This patient has no known medications. Procedures This patient has no known procedures. Results This patient has no known results.
[2021-11-17] MEDS ORDERED: HYDROCODONE/APAP 10/325 TAB ONE (05:52)
[2021-11-17] MEDS ORDERED: methocarbamoL 500 MG TAB ONE (05:52)
--- NOTE | 2021-11-17 06:09 | RAD REPORT ---
EXAM DESCRIPTION: CT - CTHCSPWOC - 11/17/2021 4:48 am CLINICAL HISTORY: neck pain, trip and fall headache COMPARISON: Thoracic Spine W/o Cont dated 11/17/2021 TECHNIQUE: Axial 5 mm thick images of the head were obtained. Axial 2 mm thick images of the cervic al spine were obtained with sagittal and coronal reconstruction images generated and reviewed. All CT scans are performed using dose optimization technique as appropriate and may include automated exposure control or mA/KV adjustment according to patient size. FINDINGS: No intracranial hemorrhage, mass, edema or acute intracranial finding. No suspicion for ac [place] infarction. No extra-axial fluid collections. Mastoid air cells and paranasal sinuses are clear o f acute finding. No globe or orbit abnormality seen. Cervical body height and alignment are normal. No disk space narrowing. Endplate spurring seen in the C5-C7 region. No fracture or acute bony abnormality. Central canal detail is inherently limited. No paraspinal mass or hematoma. IMPRESSION: Negative CT head examination for acute or significant finding. Negative CT cervical spine examination for acute or significant finding.
--- NOTE | 2021-11-17 06:16 | RAD REPORT ---
EXAM DESCRIPTION: CT - Thoracic Spine W/o Cont - 11/17/2021 4:48 am CLINICAL HISTORY: Trip and fall, back pain COMPARISON: None. TECHNIQUE: Axial 2 mm thick images of the thoracic spine were obtained with sagittal and coronal rec onstruction images generated and reviewed. All CT scans are performed using dose optimization technique as appropriate and may include automated exposure control or mA/KV adjustment according to patient size. FINDINGS: Thoracic body height and alignment are normal. No disk space narrowing. Minimal anterior e ndplate spurring in the mid to lower thoracic spine. No fracture or acute bony abnormality. No paraspinal mass or hematoma. Disc bulge and endplate spurring changes in lower cervical spine are present without central spinal s tenosis. Central canal detail is inherently limited on CT imaging. IMPRESSION: Negative CT thoracic spine examination for acute finding.
[2021-11-17] MEDS ORDERED: KETOROLAC 30 MG/ML INJ ONE (06:59)
[2021-11-17] MEDS ORDERED: METHYLPREDNISOLONE 125 MG INJ ONE (06:59)
--- NOTE | 2021-11-17 07:45 | EDPHYS ---
Physician Documentation [facility] Name: Felicitas Narayan Age: 31 yrs Sex: Female : 1990 Arrival Date: 11/17/2021 Time: 04:07 Bed 6 Private MD: ED Physician Shaka Gary HPI: 11/17 04:20 This 31 yrs old Female presents to ER via Unassigned with complaints of Fall Injury, kdr Neck Pain, <24hrs Old. 04:20 Details of fall: The patient fell from a height, Patient was being carried by her kdr partner when he tripped and fell tossing her to the floor. Onset: The symptoms/episode began/occurred suddenly, just prior to arrival. Associated injuries: The patient sustained neck injury, upper back injury, decreased range of motion, pain, pain with movement, swelling, tenderness. Severity of symptoms: At their worst the symptoms were severe, incapacitating, just prior to arrival, in the emergency department the symptoms are unchanged. The patient has not experienced similar symptoms in the past. The patient has not recently seen a physician. 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 - Social history:: Smoking status: Patient denies any tobacco usage or history of. - Immunization history: Last tetanus immunization: unknown. ROS: 04:20 Constitutional: Negative for fever, chills, and weight loss, Eyes: Negative for injury, kdr pain, redness, and discharge, Neck: Negative for injury, pain, and swelling, Cardiovascular: Negative for chest pain, palpitations, and edema, Respiratory: Negative for shortness of breath, cough, wheezing, and pleuritic chest pain, Abdomen/GI: Negative for abdominal pain, nausea, vomiting, diarrhea, and constipation, : Negative for injury, bleeding, discharge, and swelling, MS/Extremity: Negative for injury and deformity, Skin: Negative for injury, rash, and discoloration, Neuro: Negative for headache, weakness, numbness, tingling, and seizure activity. Psych: Negative for depression, anxiety, suicide ideation, homicidal ideation, and hallucinations, Allergy/Immunology: Negative for hives, rash, and allergies, Endocrine: Negative for neck swelling, polydipsia, polyuria, polyphagia, and marked weight changes, Hematologic/Lymphatic: Negative for swollen nodes, abnormal bleeding, and unusual bruising. 04:20 Back: Positive for injury or acute deformity, decreased range of motion, pain at rest, pain with movement, of the thoracic area. Exam: 04:20 Constitutional: This is a well developed, well nourished patient who is awake, alert, kdr and in no acute distress. Head/Face: Normocephalic, atraumatic. Eyes: Pupils equal round and reactive to light, extra-ocular motions intact. Lids and lashes normal. Conjunctiva and sclera are non-icteric and not injected. Cornea within normal limits. Periorbital areas with no swelling, redness, or edema. Neck: Trachea midline, no thyromegaly or masses palpated, and no cervical lymphadenopathy. Supple, full range of motion without nuchal rigidity, or vertebral point tenderness. No Meningismus. Chest/axilla: Normal chest wall appearance and motion. Nontender with no deformity. No lesions are appreciated. Cardiovascular: Regular rate and rhythm with a normal S1 and S2. No gallops, murmurs, or rubs. Normal PMI, no JVD. No pulse deficits. Respiratory: Lungs have equal breath sounds bilaterally, clear to auscultation and percussion. No rales, rhonchi or wheezes noted. No increased work of breathing, no retractions or nasal flaring. Abdomen/GI: Soft, non-tender, with normal bowel sounds. No distension or tympany. No guarding or rebound. No evidence of tenderness throughout. Skin: Warm, dry with normal turgor. Normal color with no rashes, no lesions, and no evidence of cellulitis. MS/ Extremity: Pulses equal, no cyanosis. Neurovascular intact. Full, normal range of motion. Neuro: Awake and alert, GCS 15, oriented to person, place, time, and situation. Cranial nerves II-XII grossly intact. Motor strength 5/5 in all extremities. Sensory grossly intact. Cerebellar exam normal. Normal gait. Psych: Awake, alert, with orientation to person, place and time. Behavior, mood, and affect are within normal limits. 04:20 Back: pain, that is moderate, that is severe, of the thoracic area, ROM is painful, with all movement, normal spinal alignment noted, CVA tenderness, that is mild. Vital Signs: 04:18 BP 143 / 105; Pulse 109; Resp 20 S; Temp 98.0(O); Pulse Ox 100% on R/A; Weight 92.08 kg aa9 (R); Height 5 ft. 0 in. (152.40 cm) (R); Pain 7/10; 08:00 BP 129 / 102; Pulse 90; Resp 17; Pulse Ox 100% ; jl7 04:18 Body Mass Index 39.65 (92.08 kg, 152.40 cm) aa9 Holloway Coma Score: 04:23 Eye Response: spontaneous(4). Verbal Response: oriented(5). Motor Response: obeys aa9 commands(6). Total: 15. Trauma Score (Adult): 04:23 Eye Response: spontaneous(1); Verbal Response: oriented(1); Motor Response: obeys aa9 commands(2); Systolic BP: > 89 mm Hg(4); Respiratory Rate: 10 to 29 per min(4); Holloway Score: 15; Trauma Score: 12 MDM: 07:19 Patient medically screened. [facility] 08:02 Data reviewed: vital signs, nurses notes, lab test result(s), radiologic studies. kdr Counseling: I had a detailed discussion with the patient and/or guardian regarding: the historical points, exam findings, and any diagnostic results supporting the discharge/admit diagnosis, lab results, radiology results, the need for outpatient follow up. 11/17 04:20 Order name: CT Head C Spine; Complete Time: 06:22 kdr 11/17 04:20 Order name: CT Thoracic Spine Wo Cont kdr 11/17 07:57 Order name: Sling: To right arm; Complete Time: 09:18 kdr Administered Medications: 05:46 Drug: Robaxin (methocarbamol) 750 mg Route: PO; jj7 07:37 Follow up: Response: No adverse reaction; Marked relief of symptoms vg1 05:47 Drug: [place] (HYDROcodone-acetaminophen) 10 mg-325 mg 1 tabs Route: PO; jj7 07:37 Follow up: Response: No adverse reaction; No change in condition vg1 07:25 Drug: Ketorolac 15 mg Route: IVP; Site: left wrist; vg1 07:27 Drug: SOLU-Medrol (methylPrednisoLONE) 125 mg Route: IVP; Site: left wrist; vg1 Disposition Summary: 11/17/21 07:45 Discharge Ordered Location: Home kdr Problem: new kdr Symptoms: have improved kdr Condition: Stable kdr Diagnosis - Upper back pain, right paraspinal pain kdr Followup: kdr - With: Private Physician - When: 2 - 3 days - Reason: If symptoms return, Further diagnostic work-up, Recheck today's complaints, Continuance of care, Re-evaluation by your physician Discharge Instructions: - Discharge Summary Sheet kdr - Acute Back Pain, Adult kdr - Musculoskeletal Pain kdr Forms: - Medication Reconciliation Form kdr - Thank You Letter kdr - Prescription Opioid Use kdr Prescriptions: - Cyclobenzaprine 10 mg Oral Tablet - take 1 tablet by ORAL route every 8 hours As needed; 15 tablet; Refills: 0, kdr Product Selection Permitted - Medrol (Rajeev) 4 mg Oral Tablets, Dose Pack - take 1 tablet by ORAL route as directed - follow package instructions; 1 kdr packet; Refills: 0, Product Selection Permitted - Ibuprofen 600 mg Oral Tablet - take 1 tablet by ORAL route every 6 hours As needed take with food; 15 tablet; kdr Refills: 0, Product Selection Permitted - Tylenol-Codeine #3 300 mg-30 mg Oral - take 1 tablet by ORAL route every 4-6 hours As needed; 12 tablet; Refills: 0, kdr Product Selection Permitted Signatures: Dispatcher [employer] Tenzin Bills MD MD cha Rittger, Kevin, MD MD kdr Leal, Jahala, RN RN jl7 Chelsy Warner RN RN vg1 Inocencia Rousseau RN RN aa9 Samra Banda RN RN jj7
--- NOTE | 2021-11-17 07:45 | ER ---
Nurse's Notes [facility] Name: Felicitas Narayan Age: 31 yrs Sex: Female : 1990 Arrival Date: 11/17/2021 Time: 04:07 Bed 6 Private MD: Diagnosis: Upper back pain, right paraspinal pain Presentation: 11/17 04:18 Chief complaint: Patient states: My man was carrying me to bed and he tripped and fell. aa9 He landed on me, I hit my back on the hard ceramic floor. I am really in pain in my upper back and right shoulder. Coronavirus screen: Vaccine status: Patient reports being unvaccinated. Ebola Screen: No symptoms or risks identified at this time. Initial Sepsis Screen: Does the patient meet any 2 criteria? No. Patient's initial sepsis screen is negative. Does the patient have a suspected source of infection? No. Patient's initial sepsis screen is negative. Risk Assessment: Do you want to hurt yourself or someone else? Patient reports no desire to harm self or others. Onset of symptoms was November 17, 2021 at 04:00. 04:18 Method Of Arrival: Ambulatory aa9 04:18 Acuity: ELSIE 3 aa9 Triage Assessment: 04:21 General: Appears distressed, uncomfortable, Behavior is cooperative, anxious, crying. aa9 Pain: Complains of pain in left trapezius, right trapezius, left scapular area, right scapular area and thoracic area Pain currently is 7 out of 10 on a pain scale. Aggravated by increased activity, Noted to be crying, grimacing, guarding, moaning, resistant to movement. Respiratory: Airway is patent Respiratory effort is even, unlabored, Respiratory pattern is regular, symmetrical. 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 - Social history:: Smoking status: Patient denies any tobacco usage or history of. - Immunization history: Last tetanus immunization: unknown. Screenin:23 Abuse screen: Denies threats or abuse. Denies injuries from another. Nutritional aa9 screening: No deficits noted. Tuberculosis screening: No symptoms or risk factors identified. 08:00 Fall Risk IV access (20 points). jl7 Assessment: 09:00 Reassessment: Patient appears in no apparent distress at this time. Patient and/or jl7 family updated on plan of care and expected duration. Pain level reassessed. Patient is alert, oriented x 3, equal unlabored respirations, skin warm/dry/pink. Patient states feeling better. Patient states symptoms have improved. Vital Signs: 04:18 BP 143 / 105; Pulse 109; Resp 20 S; Temp 98.0(O); Pulse Ox 100% on R/A; Weight 92.08 kg aa9 (R); Height 5 ft. 0 in. (152.40 cm) (R); Pain 7/10; 08:00 BP 129 / 102; Pulse 90; Resp 17; Pulse Ox 100% ; jl7 04:18 Body Mass Index 39.65 (92.08 kg, 152.40 cm) aa9 Burkett Coma Score: 04:23 Eye Response: spontaneous(4). Verbal Response: oriented(5). Motor Response: obeys aa9 commands(6). Total: 15. Trauma Score (Adult): 04:23 Eye Response: spontaneous(1); Verbal Response: oriented(1); Motor Response: obeys aa9 commands(2); Systolic BP: > 89 mm Hg(4); Respiratory Rate: 10 to 29 per min(4); Burkett Score: 15; Trauma Score: 12 ED Course: 04:07 Patient arrived in ED. bp1 04:09 Barrett Croft, RN is Primary Nurse. as6 04:09 Shaka Gary MD is Attending Physician. kdr 04:21 Triage completed. aa9 04:23 Arm band placed on. aa9 04:23 Patient has correct armband on for positive identification. Bed in low position. Side aa9 rails up X2. Adult w/ patient. 04:50 CT Head C Spine In Process Unspecified. EDMS 04:50 CT Thoracic Spine Wo Cont In Process Unspecified. EDMS 07:00 Patient maintains SpO2 saturation greater than 95% on room air. jl7 07:18 Attending Physician role handed off by Shaka Gary MD roya 07:18 Tenzin Su MD is Attending Physician. roya 07:20 Inserted saline lock: 24 gauge in left wrist, using aseptic technique. ,using aseptic vg1 technique. completed by Leah REYNOLDS. 07:56 Attending Physician role handed off by Tenzin Su MD kdr 07:56 Shaka Gary MD is Attending Physician. kdr 08:10 Primary Nurse role handed off by Barrett Croft RN 09:18 Leah Basilio RN is Primary Nurse. jl7 09:20 No provider procedures requiring assistance completed. IV discontinued, intact, jl7 bleeding controlled, No redness/swelling at site. Pressure dressing applied. 09:20 Sling applied to right arm. jl7 Administered Medications: 05:46 Drug: Robaxin (methocarbamol) 750 mg Route: PO; jj7 07:37 Follow up: Response: No adverse reaction; Marked relief of symptoms vg1 05:47 Drug: [place] (HYDROcodone-acetaminophen) 10 mg-325 mg 1 tabs Route: PO; jj7 07:37 Follow up: Response: No adverse reaction; No change in condition vg1 07:25 Drug: Ketorolac 15 mg Route: IVP; Site: left wrist; vg1 07:27 Drug: SOLU-Medrol (methylPrednisoLONE) 125 mg Route: IVP; Site: left wrist; vg1 Medication: 08:00 VIS not applicable for this client. jl7 Intake: 09:22 PO: 0ml; IV: 0ml; Tubes: 0ml (); Total: 0ml. jl7 Output: 09:22 Urine: 0ml; Gastric: 0ml; Stool: 0; EBL: 0ml; Drainage: 0ml; Other: 0; Total: 0ml. jl7 Outcome: 07:45 Discharge ordered by . kdr 09:20 Discharged to home ambulatory, with family. jl7 09:20 Condition: stable 09:20 Discharge instructions given to patient, family, Instructed on discharge instructions, follow up and referral plans. medication usage, Demonstrated understanding of instructions, follow-up care, medications, Prescriptions given X 4. 09:31 Patient's length of stay was not longer than 2 hours. jl7 09:55 Patient left the ED. jl7 Signatures: Dispatcher [employer] EDMS DirrimSonia Corey, MD MD cha Rittger, Kevin, MD MD kdr Leal, Leah, RN RN jl7 Timmy, Chelsy, RN RN vg1 Farzaneh Beach Ashby, RN RN as6 Inocencia Rousseau, RN RN aa9 Samra Banda, RN RN jj7
[2021-11-17 10:20] VITALS: TEMP 98; O2SAT 100
[2021-11-17 10:23] VITALS: BP 129/102
== END 2021-11-17 09:55 | disposition home or self-care (01) ==
LOC: ER 04:04
DX: M54.9 Dorsalgia, unspecified (principal); M54.2 Cervicalgia
CPT/HCPCS: 70450; 72125; 72128; 96374; 96375; 99284; J2930

== ENCOUNTER 2022-10-15 19:01 | Emergency (ER) | payer SELFPAY ==
--- OUTSIDE RECORDS SUMMARY | 2022-10-15 19:04 | XMS REPORT | Continuity of Care Document ---
:1990 Author Organization [facility] t Address [address] [place] [address] Care Team Providers Name Role Phone Unavailable Unavailable Unavailable Problems This patient has no known problems. Allergies, Adverse Reactions, Alerts This patient has no known allergies or adverse reactions. Medications This patient has no known medications. Procedures This patient has no known procedures. Encounters Start End Encounter Admission Attending Care Care Encounter Source Date/Time Date/Time Type Type Clinicians Facility Department ID 2022-01-29 2022-01-29 Outpatient [facility] [id number] Seng 15:07:44 15:07:44 [id number] F Alisia 2021-12-29 2021-12-29 Outpatient [facility] [id number] Seng 15:23:18 15:23:18 [id number] F Alisia 2021-12-23 2021-12-23 Outpatient [facility] [id number] Seng 14:59:07 14:59:07 [id number] F Alisia 2021-12-15 2021-12-15 Outpatient [facility] [id number] Seng 18:03:31 18:03:31 [id number] F Alisia Results Test Description Test Time Test Comments Results Result Comments Source CT/NG, NAAT, URINE 2021-12-24 18:09:40 Test Item Value Reference Range Interpretation Comme nts GONORRHEA, NAAT NEGATIVE NEGATIVE IMPORTA NT NOTICE: SEE ANNOUNCEMENT AT (test code = [email or web address]/[email or web address] Note: 84879) Assay methodolo gy is nucleic acid amplification by transcriptio n mediated amplification (TMA) utilizing the A ptima Combo 2 Assay. CHLAMYDIA, NAAT NEGATIVE NEGATIVE IMPORTA NT NOTICE: SEE ANNOUNCEMENT AT (test code = [email or web address]/[email or web address] Note: 48198) Assay methodolo gy is nucleic acid amplification by transcriptio n mediated amplification (TMA) utilizing the A ptima Combo 2 Assay. HIV 1/2 4TH GEN, RFLX [id number] 05:33:45 Test Item Value Reference Range Interpretation Comments HIV 1/2 4TH GEN, RFLX CONF (test NON-REACTIVE NON-REACTIVE code = 3514) HEPATITIS PANEL, [id number] 05:33:45 Test Item Value Reference Range Interpretation Comments HEPATITIS A IgM (test NON-REACTIVE NON-REACTIVE code = 88901) HEPATITIS B CORE IgM NON-REACTIVE NON-REACTIVE (test code = 4644) HEPATITIS B SURF AG NON-REACTIVE NON-REACTIVE (test code = 2739) HEPATITIS C ANTIBODY REACTIVE NON-REACTIVE A (test code = 4675) INTERPRETATION (NOTE) Hepatitis A HEPATITIS A: (test serology shows no code = 2552) evidence of acu te hepatitis A. INTERPRETATION (NOTE) Hepatitis B HEPATITIS B: (test serology shows no code = 18847) evidence of ac robert hepatitis B and no indication of exposure to hepatitis B vir us in the previous si xto eight months. INTERPRETATION (NOTE) Hepatitis C HEPATITIS C: (test serology is code = 92133) consistent wit h exposure to hepatitis Cviru s. The CDC recomme nds performing a supplemental confirmatory te ston initial positiv e hepatitis C ant ibody tests. HCV PCR quantitativecan be used to confirm these results o n a new sample (See MMWR, 2003;52 R R-3). [id number] 03:52:57 Test Item Value Reference Range Interpretation Comments RPR RESULT (test NON-REACTIVE NON-REACTIVE code = 3501) RPR TITER (test NOT INDIC. NOT INDIC. UNLESS OTHE RWISE code = 3500) TITER INDICATED, ALL TESTING PERFORMED [facility] [employer] [address] [place] [address] 4 LABORATORY DIRE CTOR: JAKI BARAJAS M.D. CLIA NUMBER [id number] [place]. [id number] VAGINAL PATHOGENS DNA [id number] 16:28:56 Test Item Value Reference Range Interpretation Comments SARA SPECIES (test POSITIVE NEGATIVE A code = ) G. VAGINALIS (test NEGATIVE NEGATIVE code = 19170) T. VAGINALIS (test NEGATIVE NEGATIVE UNLESS O THERWISE code = 21168) INDICATED, ALL TESTING PERFORMED [facility] [address] [place] [address] 4 LABORATORY DIRE CTOR: JAKI BARAJAS M.D. CLIA NUMBER [id number] [place]. [id number]
[2022-10-15 19:53] LABS: Hematocrit 46.5 % (36.0-45.0); MCV 91.8 fL (80-100); MPV 8.2 fL (7.6-11.3); Platelets 315 thou/uL (152-406); RBC Red Blood Cell Count 5.06 M/uL (3.86-4.86)
[2022-10-15] MEDS ORDERED: NA CHLORIDE 0.9% 1,000 ML ONE ×2 (19:57→20:47)
--- NOTE | 2022-10-15 20:11 | RAD REPORT ---
EXAM DESCRIPTION: CT - Head Brain Wo Cont - 10/15/2022 8:05 pm CLINICAL HISTORY: altered episode dizzy Headache, drowsiness, dizziness COMPARISON: <Comparisons> TECHNIQUE: All CT scans are performed using dose optimization technique as appropriate and may inclu de automated exposure control or mA/KV adjustment according to patient size. FINDINGS: No intracranial hemorrhage, hydrocephalus or extra-axial fluid collection.No areas of brai n edema or evidence of midline shift. The paranasal sinuses and mastoids are clear. The calvarium is intact. IMPRESSION: No acute intracranial abnormality.
[2022-10-15 20:14] LABS: Albumin 3.8 g/dL (3.4-5.0); Bilirubin Total 1.5 mg/dL (0.2-1.0); Potassium 3.1 mEq/L (3.5-5.1); Protein, Total 8.3 g/dL (6.4-8.2)
--- NOTE | 2022-10-15 20:32 | ER ---
Nurse's Notes [facility] Name: Felicitas Narayan Age: 32 yrs Sex: Female : 1990 Arrival Date: 10/15/2022 Time: 19:01 Bed 20 Private MD: Diagnosis: Dehydration;Syncope Near;Hypokalemia Presentation: 10/15 19:05 Chief complaint: Patient states: Tingling on face that is getting better, sore all nj1 over, weak. "I feel now like i use to feel after i had a seizure a long time ago". Friend and/or Co-Worker states: were helping her move, have been in a building that has no air conditioner, it was very hot in there, she started looking like she was going to pass out. She has been under a lot of stress lately. 19:05 Coronavirus screen: Vaccine status: Patient reports being unvaccinated. Ebola Screen: nj Patient denies travel to an Ebola-affected area in the 21 days before illness onset. Initial Sepsis Screen: Does the patient meet any 2 criteria? No. Patient's initial sepsis screen is negative. Does the patient have a suspected source of infection? No. Patient's initial sepsis screen is negative. Risk Assessment: Do you want to hurt yourself or someone else? Patient reports no desire to harm self or others. Onset of symptoms was October 15, 2022. 19:05 Method Of Arrival: Wheelchair [facility] 19:05 Acuity: ELSIE 3 nj1 19:05 Note Friend states she is much better now, she just seems like she is moving slower nj than normal. 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 Speech is normal, Seems somewhat slow. Facial symmetry appears normal, Pupils are PERRLA. Historical: - Allergies: 19:19 cranberries; nj1 19:19 Morphine; nj1 19:19 ORANGES; nj1 - PMHx: 19:19 Anxiety; CVA; x6; Depression; Hepatitis; HYPOGLYCEMIA; Lupus; none since 2011; nj1 Seizures; Ulcers; - PSHx: 19:19 Cholecystectomy; hysterectomy; nj1 - Immunization history:: Client reports receiving the 2nd dose of the Covid vaccine. - Social history:: Smoking status: Reported history of juuling and/or vaping. - Family history:: not pertinent. Screenin:04 [facility] ED Fall Risk Assessment (Adult) History of falling in the last 3 months, fu including since admission No falls in past 3 months (0 pts). Abuse screen: Denies threats or abuse. Nutritional screening: No deficits noted. Tuberculosis screening: No symptoms or risk factors identified. Assessment: 19:28 General: Appears in no apparent distress. Behavior is calm, cooperative, appropriate fu for age. Pain: Denies pain. Neuro: Reports numbness in face and hand. Respiratory: Airway is patent Respiratory effort is even, unlabored, Respiratory pattern is regular. 20:00 Reassessment: Patient and/or family updated on plan of care and expected duration. Pain fu level reassessed. Patient is alert, oriented x 3, equal unlabored respirations, skin warm/dry/pink. 21:01 Reassessment: No changes from previously documented assessment. Patient and/or family fu updated on plan of care and expected duration. Pain level reassessed. Patient is alert, oriented x 3, equal unlabored respirations, skin warm/dry/pink. 21:54 Reassessment: No changes from previously documented assessment. Patient and/or family kl updated on plan of care and expected duration. Pain level reassessed. Patient states feeling better. Patient states symptoms have improved. Vital Signs: 19:05 BP 137 / 104; Pulse 88; Resp 18; Temp 98.3(O); Pulse Ox 99% on R/A; Weight 81.19 kg; nj1 Height 5 ft. 0 in. ; Pain 5/10; 19:49 BP 116 / 93; Pulse 80; Resp 16; Pulse Ox 98% on R/A; mb9 21:06 BP 121 / 79; Pulse 71; Resp 18; Pulse Ox 98% ; fu 21:45 BP 124 / 97; Pulse 64; Resp 18; Pulse Ox 97% ; fu 21:55 BP 126 / 82; Pulse 66; Resp 18; Pulse Ox 97% on R/A; kl 19:05 Body Mass Index 34.96 (81.19 kg, 152.4 cm) nj1 19:05 Pain Scale: Adult [facility] ED Course: 19:02 Patient arrived in ED. rg4 19:09 Patient has correct armband on for positive identification. Bed in low position. Call ap3 light in reach. Side rails up X2. 19:09 Arm band placed on right wrist. ap3 19:15 Odalys Jaramillo MD is Attending Physician. cp3 19:18 Triage completed. nj1 19:28 Heri Campbell, RN is Primary Nurse. fu 19:45 Inserted saline lock: 22 gauge in left forearm, using aseptic technique. Blood fu collected. 19:49 Comprehensive Metabolic Panel Sent. mb9 19:49 CBC w/o diff Sent. mb9 19:49 CK Sent. mb9 20:07 CT Head Brain wo Cont In Process Unspecified. EDMS 21:55 No provider procedures requiring assistance completed. IV discontinued, intact, kl bleeding controlled, No redness/swelling at site. Pressure dressing applied. Administered Medications: 19:49 Drug: NS 0.9% IV 1000 ml Route: IV; Rate: 1000 ml; Site: left forearm; mb9 21:57 Follow up: Response: No adverse reaction; IV Intake: 600ml fu 20:40 Drug: NS 0.9% IV 1000 ml Route: IV; Rate: 1 bolus; Site: left forearm; mb9 21:56 Follow up: Response: No adverse reaction; IV Intake: 1000ml fu 20:41 Drug: Potassium PO Effervescent Tablet 50 mEq Route: PO; mb9 21:41 Follow up: Response: No adverse reaction fu 20:55 Drug: Ondansetron IVP 4 mg Route: IVP; Site: left forearm; fu 21:55 Follow up: Response: Nausea is decreased fu Intake: 21:56 IV: 1000ml; Total: 1000ml. fu 21:57 IV: 600ml; Total: 1600ml. fu Outcome: 20:31 Discharge ordered by . cp3 21:55 Discharged to home ambulatory. kl 21:55 Condition: improved 21:55 Discharge instructions given to patient, Instructed on discharge instructions, follow up and referral plans. medication usage, Demonstrated understanding of instructions, follow-up care, medications, Prescriptions given X 1. 21:55 Patient left the ED. kl Signatures: Dispatcher [employer] EDMS Alix Galvan RN RN kl Pinckney, Cwanza, MD MD 3 Sary Warner 4 Heri Campbell RN RN fu Prokisch, Amanda, RN RN 3 Shana, Zora, RN RN mb9 Angela Hartley, RN RN nj1
--- NOTE | 2022-10-15 20:32 | EDPHYS ---
Physician Documentation [facility] Name: Kiarra Narayan Age: 32 yrs Sex: Female : 1990 Arrival Date: 10/15/2022 Time: 19:01 Bed 20 Private MD: ED Physician Odalys Jaramillo HPI: 10/15 19:34 This 32 yrs old Female presents to ER via Wheelchair with complaints of Numbness Of cp3 Face, Numbness Of Hand. 19:34 The patient is a 32-year-old female who presents to the ED secondary to near syncopal cp3 episode, dizziness, generalized weakness after being outside in an air conditioned storage facility for several hours. The patient denies chest pain but states she felt like everything was going black and the room started spinning. The patient endorses she is only being treated by for hypertension upon review of the medical record patient has a history of anxiety, CVA, depression, hepatitis, hypoglycemia, lupus. Patient states the symptoms have resolved now and she is feeling a lot better I think she got really dehydrated and overheated. Patient denies chest pain, shortness of breath.. Historical: - Allergies: 19:19 cranberries; nj1 19:19 Morphine; nj1 19:19 ORANGES; nj1 - PMHx: 19:19 Anxiety; CVA; x6; Depression; Hepatitis; HYPOGLYCEMIA; Lupus; none since 2011; nj1 Seizures; Ulcers; - PSHx: 19:19 Cholecystectomy; hysterectomy; nj1 - Immunization history:: Client reports receiving the 2nd dose of the Covid vaccine. - Social history:: Smoking status: Reported history of juuling and/or vaping. - Family history:: not pertinent. ROS: 19:34 Constitutional: Negative for fever, chills, and weight loss. cp3 19:34 Eyes: Negative for injury, pain, redness, and discharge, ENT: Negative for injury, pain, and discharge, Neck: Negative for injury, pain, and swelling, Cardiovascular: Negative for chest pain, palpitations, and edema, Respiratory: Negative for shortness of breath, cough, wheezing, and pleuritic chest pain, Abdomen/GI: Negative for abdominal pain, nausea, vomiting, diarrhea, and constipation, Back: Negative for injury and pain, MS/Extremity: Negative for injury and deformity, Skin: Negative for injury, rash, and discoloration, Psych: Negative for depression, anxiety, suicide ideation, homicidal ideation, and hallucinations, Allergy/Immunology: Negative for hives, rash, and allergies, Endocrine: Negative for neck swelling, polydipsia, polyuria, polyphagia, and marked weight changes, Hematologic/Lymphatic: Negative for swollen nodes, abnormal bleeding, and unusual bruising. 19:34 Neuro: Positive for dizziness, near syncope, weakness. Exam: 19:34 Constitutional: This is a well developed, well nourished patient who is awake, alert, cp3 and in no acute distress. Head/Face: Normocephalic, atraumatic. Eyes: Pupils equal round and reactive to light, extra-ocular motions intact. Lids and lashes normal. Conjunctiva and sclera are non-icteric and not injected. Cornea within normal limits. Periorbital areas with no swelling, redness, or edema. ENT: Nares patent. No nasal discharge, no septal abnormalities noted. Tympanic membranes are normal and external auditory canals are clear. Oropharynx with no redness, swelling, or masses, exudates, or evidence of obstruction, uvula midline. Mucous membranes moist. Neck: Trachea midline, no thyromegaly or masses palpated, and no cervical lymphadenopathy. Supple, full range of motion without nuchal rigidity, or vertebral point tenderness. No Meningismus. Chest/axilla: Normal chest wall appearance and motion. Nontender with no deformity. No lesions are appreciated. Cardiovascular: Regular rate and rhythm with a normal S1 and S2. No gallops, murmurs, or rubs. Normal PMI, no JVD. No pulse deficits. Respiratory: Lungs have equal breath sounds bilaterally, clear to auscultation and percussion. No rales, rhonchi or wheezes noted. No increased work of breathing, no retractions or nasal flaring. Abdomen/GI: Soft, non-tender, with normal bowel sounds. No distension or tympany. No guarding or rebound. No evidence of tenderness throughout. Back: No spinal tenderness. No costovertebral tenderness. Full range of motion. Skin: Warm, dry with normal turgor. Normal color with no rashes, no lesions, and no evidence of cellulitis. MS/ Extremity: Pulses equal, no cyanosis. Neurovascular intact. Full, normal range of motion. Neuro: Awake and alert, GCS 15, oriented to person, place, time, and situation. Cranial nerves II-XII grossly intact. Motor strength 5/5 in all extremities. Sensory grossly intact. Cerebellar exam normal. Normal gait. Psych: Awake, alert, with orientation to person, place and time. Behavior, mood, and affect are within normal limits. 20:33 Radiologist reports: neg acute cp3 Vital Signs: 19:05 BP 137 / 104; Pulse 88; Resp 18; Temp 98.3(O); Pulse Ox 99% on R/A; Weight 81.19 kg; nj1 Height 5 ft. 0 in. ; Pain 5/10; 19:49 BP 116 / 93; Pulse 80; Resp 16; Pulse Ox 98% on R/A; mb9 21:06 BP 121 / 79; Pulse 71; Resp 18; Pulse Ox 98% ; fu 21:45 BP 124 / 97; Pulse 64; Resp 18; Pulse Ox 97% ; fu 21:55 BP 126 / 82; Pulse 66; Resp 18; Pulse Ox 97% on R/A; kl 19:05 Body Mass Index 34.96 (81.19 kg, 152.4 cm) nj1 19:05 Pain Scale: Adult nj1 MDM: 19:15 Patient medically screened. cp3 20:26 Differential diagnosis: CVA, metabolic disorder, dehydration, heat exhaustion, nausea, cp3 hypokalemia. Data reviewed: vital signs, nurses notes, lab test result(s), finger stick glucose, CBC, electrolytes, hepatic panel. Consideration of Admission/Observation Escalation of care including admission/observation considered. patient with resolution in symptoms and declines admission. I considered the following discharge prescriptions or medication management in the emergency department Medications were administered in the Emergency Department. See MAR. Independent interpretation of the following test(s) in the Emergency Department school lunch monitor: rate is 80 beats/min, Rhythm is normal sinus rhythm. Historians other than the Patient: Parent: patients mother at bedside endorsed that the patient was in the heat for quite some time and nearly passed out. she endorsed the patient has returned to baseline at discharge. External Records Reviewed: PDMP reviewed. ED course: reviewed labs and plan of care with patient and mother at bedside. patient endorses she would like to follow up for outpatient managment. 20:42 ED course: 2032: ekg interpreted by me, normal sinus rhythm, no evidence of acute [facility] 10/15 19:34 Order name: CBC w/o diff; Complete Time: 20:01 [facility] 10/15 20:30 Interpretation: WBC 11.00; RBC 5.06; HGB 15.9; HCT 46.5; MCV 91.8; MCH 31.4; MCHC 34.2; cp3 PLT 315; RDW 12.6; MPV 8.2. 10/15 19:34 Order name: Comprehensive Metabolic Panel; Complete Time: 20:24 [facility] 10/15 20:30 Interpretation: NA 139; K 3.1; CL 107; CO2 24; ANION GAP 11.1; GLUC 140; BUN 12; CRE cp3 1.01; GFR 76; AST 44; ALT 65; ALK 68; BILIT 1.5; CA 9.1; TP 8.3; ALB 3.8; GLOB 4.5; A/G 0.8. 10/15 19:34 Order name: Urinalysis w/ reflexes [facility] 10/15 19:34 Order name: Test, Urine [facility] 10/15 19:34 Order name: CK; Complete Time: 20:24 [facility] 10/15 19:50 Order name: Glucose, Ancillary Testing; Complete Time: 20:01 EDMS 10/15 20:30 Interpretation: GLUC,ANCIL 141. [facility] 10/15 19:34 Order name: CT Head Brain wo Cont; Complete Time: 20:24 [facility] 10/15 20:30 Interpretation: Per Radiologist's finding(s): [place] [address] [facility] REPORT Name: KIARRA NARAYAN Acct Number: [id number] :1990 Age:32 Sex:F Ord Phys: Odalys Jaramillo MD Unit Number: [id number] [facility] [address]: NONE Status: REG ER ER Exam Date: 10/15/22 EXAM DESCRIPTION: CT - Head Brain Wo Cont - 10/15/2022 8:05 pm CLINICAL HISTORY: altered episode dizzy Headache, drowsiness, dizziness COMPARISON: <Comparisons> TECHNIQUE: All CT scans are performed using dose optimization technique as appropriate and may include automated exposure control or mA/KV adjustment according to patient size. FINDINGS: No intracranial hemorrhage, hydrocephalus or extra-axial fluid collection.No areas of brain edema or evidence of midline shift. The paranasal sinuses and mastoids are clear. The calvarium is intact. IMPRESSION: No acute intracranial abnormality. Signed By: Omero Uribe MD Signed AT: 10/15/222010 . 10/15 19:38 Order name: EKG; Complete Time: 19:38 cp3 10/15 19:34 Order name: Saline Lock; Complete Time: 19:49 cp3 10/15 19:38 Order name: Glucose Level; Complete Time: 19:48 cp3 Administered Medications: 19:49 Drug: NS 0.9% IV 1000 ml Route: IV; Rate: 1000 ml; Site: left forearm; mb9 21:57 Follow up: Response: No adverse reaction; IV Intake: 600ml fu 20:40 Drug: NS 0.9% IV 1000 ml Route: IV; Rate: 1 bolus; Site: left forearm; mb9 21:56 Follow up: Response: No adverse reaction; IV Intake: 1000ml fu 20:41 Drug: Potassium PO Effervescent Tablet 50 mEq Route: PO; mb9 21:41 Follow up: Response: No adverse reaction fu 20:55 Drug: Ondansetron IVP 4 mg Route: IVP; Site: left forearm; fu 21:55 Follow up: Response: Nausea is decreased fu Disposition Summary: 10/15/22 20:31 Discharge Ordered Location: Home cp3 Condition: Stable cp3 Diagnosis - Dehydration cp3 - Syncope Near cp3 - Hypokalemia cp3 Followup: cp3 - With: Private Physician - When: - Reason: Continuance of care Discharge Instructions: - Discharge Summary Sheet cp3 - Dehydration, Adult cp3 - Near-Syncope cp3 - Hypokalemia cp3 Forms: - Medication Reconciliation Form cp3 - Thank You Letter cp3 - Antibiotic Education cp3 - Prescription Opioid Use cp3 - Patient Portal Instructions cp3 - Leadership Thank You Letter cp3 Prescriptions: - Zofran 4 mg Oral Tablet - take 1 tablet by ORAL route every 12 hours As needed; 20 tablet; Refills: 0, cp3 Product Selection Permitted Signatures: Dispatcher [employer] Tenzin Bills MD MD cha Pinckney, Cwanza, MD MD 3 Heri Campbell RN RN fu Breneman, Mary Beth, RN RN mb9 Naeem Angela, RN RN nj1
[2022-10-15] MEDS ORDERED: POTASSIUM 25 MEQ EFFERV TAB ONE (20:47)
[2022-10-15] MEDS ORDERED: ONDANSETRON 4 MG/2 ML VIAL ONE (20:56)
[2022-10-15 21:58] LABS: Specific Gravity 1.011 (1.005-1.030)
[2022-10-15 22:00] VITALS: TEMP 98.3
[2022-10-15 22:05] VITALS: O2SAT 97
[2022-10-15 22:07] VITALS: BP 126/82
[2022-10-15 22:13] LABS: Specific Gravity 1.011 (1.005-1.030); Urine Bacteria None Seen /HPF (<20); Urine Bilirubin NEGATIVE (Negative); Urine Blood Negative (Negative); Urine Clarity Extremely Turbid (Clear); Urine Color Yellow (Yellow); Urine Glucose NEGATIVE (Negative); Urine Mucus 2+ /HPF (None Seen); Urine Protein NEGATIVE (Negative); Urine RBC <5 /HPF (None Seen); Urine Urobilinogen 1+ (Normal); Urine pH 6.5 (5.0-7.0)
--- NOTE | 2022-10-17 15:31 | EKG ---
Test Date: 2022-10-15 Test Time: 20:33:12 Manager Content: KHALIF MEASUREMENT RESULTS: Intervals: Rate: 73 UT: 132 QRSD: 90 QT: 374 QTc: 412 [place]: P: 17 UT: 132 QRS: -19 T: -14 INTERPRETIVE STATEMENTS: Normal sinus rhythm Normal ECG Compared to ECG 07/20/2006 12:20:15 Sinus arrhythmia no longer present Electronically Signed On 10-17-22 15:28:53 CDT by Floyd Torres
== END 2022-10-15 21:55 | disposition home or self-care (01) ==
LOC: ER 19:01
DX: E86.0 Dehydration (principal); R55 Syncope and collapse; E87.6 Hypokalemia
CPT/HCPCS: 36415; 70450; 80053; 81001; 81025; 82550; 82947; 85027; 93005; 96374; 99284; J2405; J7030